=== PATIENT | male | born 1960 | race Native Hawaiian/Other Pacific Islander ===

== ENCOUNTER → 2021-09-17 | Outpatient (CLI) | payer SELFPAY ==
--- NOTE | 2021-09-17 11:02 | P.STRESS ---
- Stress Test Note Stress Test Results/Findings: Exam Performed: stress echo exercise Exam Date: 09/17/21 Reason for Exam: syncopy Height: 5 ft 7 in Weight: 227 kg Protocol: makeda Stage: 4 Duration of Exercise: 10 min Resting Heart Rate: 72 Resting Blood Pressure: 115/77 Maximum Achieved Heart Rate: 154 Maximum Achieved Blood Pressure: 195/61 85% PMHR: 136 100% PMHR: 160 METS: 10.5 Technologist Comment: Stress Test Results/Findings: This is a 61-year-old gentleman with the history of syncope being evaluated for cardiac status. Stress data: Baseline EKG showed sinus rhythm with small IN interval, QRS duration. Blood pressure at rest is 115/77, pulse rate of 72. Patient walked on the Makeda protocol for 10 minutes achieving a maximal heart rate of 154 with a blood pressure 195/61. EKGs taken during and after exercise did not reveal any significant changes from the baseline. Occasional PVCs were noted. Echo data: Baseline echo images showed normal wall motion and thickening. Exercise echo images showed augmentation of wall motion and thickening in all the segments. Final impression: #1. Negative stress test #2. Negative stress echo.
--- NOTE | 2021-09-18 08:37 | EST ---
Stress Test Results/Findings: Exam Performed: stress echo exercise Exam Date: 09/17/21 Reason for Exam: syncopy Height: 5 ft 7 in Weight: 227 kg Protocol: makeda Stage: 4 Duration of Exercise: 10 min Resting Heart Rate: 72 Resting Blood Pressure: 115/77 Maximum Achieved Heart Rate: 154 Maximum Achieved Blood Pressure: 195/61 85% PMHR: 136 100% PMHR: 160 METS: 10.5 Technologist Comment: Stress Test Results/Findings: This is a 61-year-old gentleman with the history of syncope being evaluated for cardiac status. Stress data: Baseline EKG showed sinus rhythm with small NM interval, QRS duration. Blood pressure at rest is 115/77, pulse rate of 72. Patient walked on the Makeda protocol for 10 minutes achieving a maximal heart rate of 154 with a blood pressure 195/61. EKGs taken during and after exercise did not reveal any significant changes from the baseline. Occasional PVCs were noted. Echo data: Baseline echo images showed normal wall motion and thickening. Exercise echo images showed augmentation of wall motion and thickening in all the segments. Final Impression: #1. Negative stress test #2. Negative stress echo. [place]
== END | disposition home or self-care (01) ==
LOC: RADNMMAIN 08:56
PROVIDERS: ATTEND Family Medicine
DX: R55 Syncope and collapse (principal); R06.00 Dyspnea, unspecified; Z82.49 Family history of ischemic heart disease and other diseases of the circulatory system
CPT/HCPCS: 93351